=== PATIENT | male | born 1985 | race Two or more races ===

== ENCOUNTER 2019-10-09 11:37 | Emergency (ER) | payer MEDICAID ==
[~2019-10-09] VITALS: Ht 177.8 cm; Wt 74.8 kg
--- NOTE | 2019-10-09 14:09 | NUR ---
TOOK OVER PT CARE. PT [id number], from the street, etoh noted. placed on monitor and pulse ox. no acute distress noted.
--- NOTE | 2019-10-09 15:32 | NUR ---
Social service consult requested by ED CRErrol March for ETOH and possible homelessness. Per chart review and MD notes, pt is a 33-year-old male with a history of alcohol dependence, who was brought in by rescue for acute alcohol intoxication. Per EMS patient was found outside [facility] intoxicated. [employer] met with the pt. bedside. [employer] introduced self and explained her role. Pt. is alert and oriented x 4. Pt. appears disheveled. Pt. states he is from [place] and currently lives in [place]. Pt. declines to state what he is doing in [facility]. Pt. denies any history of drug and alcohol use, although pt. was brought to ED for alcohol intoxication. Pt. denies any psychiatric diagnosis and denies suicidal and homicidal ideations. [employer] provided active listening and supportive counseling. Pt declined all resources offered to him. Pt. will require a TAP card upon discharge. Homeless Patient waiver form to be signed by the pt. upon discharge. [employer] updated ALEXANDER March regarding pt's discharge plan. No other social service needs are requested at this time.
--- NOTE | 2019-10-09 16:29 | NUR ---
Patient discharged to home in stable condition. Written and verbal after care instructions given. Patient verbalizes understanding of instruction. Pt signed homeless checklist. vss. No actue distress noted. darrenich provided.
[2019-10-09 16:30] VITALS: BP 128/72
== END 2019-10-09 16:44 | disposition home or self-care (01) ==
LOC: ER 11:37
DX: F10.229 Alcohol dependence with intoxication, unspecified (principal); Y90.9 Presence of alcohol in blood, level not specified